=== PATIENT | female | born 1990 | race Hispanic/Latino ===

== ENCOUNTER 2019-04-10 07:21 | Day surgery (SDC) | payer MEDICAID ==
[2019-04-09 16:18] VITALS: BP 128/79
[2019-04-09 16:24] LABS: BASOPHILS % (AUTO) 0.4 % (0.0-5.0); EOSINOPHILS % (AUTO) 0.9 % (0.0-8.0); HEMATOCRIT 38.2 % (36-48); LYMPHOCYTES % (AUTO) 29.1 % (21.0-51.0); MEAN CORPUSCULAR HEMOGLOBIN 30.5 pg (27.0-33.0); MEAN CORPUSCULAR HGB CONC 33.2 g/dL (32.0-36.0); MEAN CORPUSCULAR VOLUME 91.8 fL (79-99); MONOCYTES % (AUTO) 5.9 % (3.0-13.0); NEUTROPHILS % (AUTO) 63.3 % (40.0-77.0); PLATELET COUNT (AUTO) 271 K/uL (130-400); RED BLOOD CELL COUNT(AUTO) 4.16 MIL/uL (4.00-5.50); RED CELL DISTRIBUTION WIDTH 12.4 % (11.0-15.5)
[2019-04-10] VITALS (17 sets, daily range): BP systolic 106–128; BP diastolic 58–79
[~2019-04-10] VITALS: Ht 153.7 cm; Wt 57.7 kg
[~2019-04-10 07:21] MED LIST: LACTATED RINGERS 1000ML 1,000 ML IV SCH
[2019-04-10] MEDS ORDERED: PROPOFOL 10 MG/ML 20ML VIAL IV ONE (09:42)
[2019-04-10] MEDS ORDERED: ONDANSETRON HCL 4 MG/2 ML VIAL ONE (09:42)
[2019-04-10] MEDS ORDERED: MIDAZOLAM HCL 1 MG/ML 2ML VIAL ONE (09:42)
[2019-04-10] MEDS ORDERED: FENTANYL CITRATE PF 50 MCG/1 ML 2ML VIAL ONE (09:53)
[2019-04-10] MEDS ORDERED: MEASLES/MUMPS/RUBELLA VACCINE, LIVE 0.5 ML/VIAL SQ SCH (11:40)
--- NOTE | 2019-04-10 11:45 | NUR ---
ASSESSMENT RECEIVED PT FROM PACU STAFF. [id number]. AT BEDSIDE. ANDREA PAD DRY AND INTACT
--- NOTE | 2019-04-10 12:20 | NUR ---
DISCHARGE ORAL AND WRITTEN DISCHARGE INSTRUCTIONS GIVEN TO PT AND PTS BOYFRIEND ALONG WITH PRESCRIPTIONS. NO OTHER OTHER QUESTIONS AT THIS TIME.
== END 2019-04-10 12:25 | disposition home or self-care (01) ==
LOC: DAH 07:21
DX: O02.1 Missed abortion (principal); Z83.3 Family history of diabetes mellitus
CPT/HCPCS: 36415; 59820; 85025; 88305; 90707; A4215; A4221; A4222; A4223; A4663; A6260; J2250; J2405; J2704; J3010; J7120

== ENCOUNTER 2021-09-05 14:13 | Emergency (ER) | payer MEDICAID ==
[~2021-09-05] VITALS: Ht 152.4 cm; Wt 67.1 kg
[~2021-09-05 14:13] MED LIST changes: +DOCU-116 PO; +IBUP-2077 PO; -LACTATED RINGERS 1000ML 1,000 ML IV SCH; +PREN-196 PO
[2021-09-05 14:45] LABS: BASOPHILS % (AUTO) 0.8 % (0.0-5.0); EOSINOPHILS % (AUTO) 3.9 % (0.0-8.0); HEMATOCRIT 41.2 % (36-48); LYMPHOCYTES % (AUTO) 22.3 % (21.0-51.0); MEAN CORPUSCULAR HEMOGLOBIN 31.3 pg (27.0-33.0); MONOCYTES % (AUTO) 8.5 % (3.0-13.0); NEUTROPHILS % (AUTO) 64.1 % (40.0-77.0); PLATELET COUNT (AUTO) 296 K/uL (130-400); RED BLOOD CELL COUNT(AUTO) 4.48 MIL/uL (4.00-5.50); RED CELL DISTRIBUTION WIDTH 12.3 % (11.0-15.5); WHITE BLOOD COUNT (AUTO) 7.6 K/uL (4.8-10.8)
[2021-09-05 14:45] LABS: APPEARANCE,URINE CLEAR (CLEAR); BILIRUBIN,URINE NEGATIVE (NEGATIVE); COLOR,URINE YELLOW (YELLOW); GLUCOSE, URINE (UA) NEGATIVE (NEGATIVE); KETONES,URINE NEGATIVE (NEGATIVE); LEUKOCYTE ESTERASE ,URINE NEGATIVE (NEGATIVE); NITRATE,URINE NEGATIVE (NEGATIVE); OCCULT BLOOD,URINE TRACE-INTACT (NEGATIVE); PH,URINE 6.5 (5.0-8.0); PROTEIN,URINE NEGATIVE (NEGATIVE); UROBILINOGEN,URINE 0.2 mg/dL (0.2-1.0)
[2021-09-05 14:49] LABS: HCG,QUALITATIVE URINE NEGATIVE (NEGATIVE)
[2021-09-05 15:04] LABS: HCG,QUANTITATIVE 0 mIU/mL (0-5); LIPASE 75 U/L (114-286)
[2021-09-05 15:05] LABS: BACTERIA,URINE Rare /HPF (None Seen); MUCUS,URINE Few LPF (None Seen); SQUAMOUS EPITHELIAL CELL,UR Moderate /HPF (0-2); URIC ACID CRYSTALS,URINE Few /LPF (None Seen); WBC,URINE 0-1 /HPF (0-1)
[2021-09-05 16:05] LABS: CREATININE 0.7 mg/dL (0.5-1.5); POTASSIUM 4.3 mmol/L (3.5-5.1)
[2021-09-05 16:16] LABS: ALBUMIN 3.8 g/dL (3.5-5.0); TOTAL PROTEIN, SERUM 7.6 g/dL (6.0-8.3)
[2021-09-05] MEDS ORDERED: HYDR25SU11 RC (17:32)
[2021-09-05] MEDS ORDERED: DOCU-116 PO (17:35)
[2021-09-05 17:51] VITALS: BP 126/87
== END 2021-09-05 17:54 | disposition home or self-care (01) ==
LOC: EDH 14:13
DX: K62.5 Hemorrhage of anus and rectum (principal); Z79.1 Long term (current) use of non-steroidal anti-inflammatories (NSAID)
CPT/HCPCS: 36415; 80053; 81001; 81025; 82270; 82272; 83690; 84702; 85025

== ENCOUNTER 2022-04-23 14:27 | Emergency (ER) | payer OTHER, MEDICAID ==
[~2022-04-23] VITALS: Ht 152.4 cm; Wt 62.1 kg
[~2022-04-23 14:27] MED LIST changes: +HYDR25SU11 RC
[2022-04-23 14:29] VITALS: BP 133/88
[2022-04-23] MEDS ORDERED: CYCL10TA16 PO (16:51)
[2022-04-23] MEDS ORDERED: NAPR375T6 PO (16:51)
== END 2022-04-23 17:22 | disposition home or self-care (01) ==
LOC: EDH 14:27
DX: T14.8XXA Other injury of unspecified body region, initial encounter (principal); S50.812A Abrasion of left forearm, initial encounter; Z98.890 Other specified postprocedural states; Z79.899 Other long term (current) drug therapy; V89.2XXA Person injured in unspecified motor-vehicle accident, traffic, initial encounter; Y93.I9 Activity, other involving external motion; Y92.488 Other paved roadways as the place of occurrence of the external cause; Y99.8 Other external cause status
CPT/HCPCS: 71045; 72050; 73090; 81025